=== PATIENT | male | born 1990 | race African-American/Black ===

== ENCOUNTER 2017-01-23 18:38 | Emergency (ER) | payer OTHER ==
[~2017-01-23] VITALS: Ht 188 cm; Wt 65.0 kg
[~2017-01-23 18:38] MED LIST: DILA2TAB2 PO; FOLI1 PO; HYDR500 PO; PERC5TAB12 PO; PERI8.6T PO
[2017-01-23 18:40] VITALS: BP 130/74; PULSE 86; RESP 15; TEMP 99.1; O2SAT 98
--- NOTE | 2017-01-23 18:47 | PD ---
Physical Exam Time Seen by Provider: 18:46 Narrative 26 y/o male here for evaluation of L leg pain which he attributes to sickle cell. He also has a wound to the medial L ankle for one week. Vital signs reviewed. Seen at triage desk. Awaiting bed placement. Data Data Last Documented VS Vital Signs Date Time Temp Pulse Resp B/P Pulse Ox O2 Delivery O2 Flow Rate FiO2 01/23/17 18:40 99.1 86 15 130/74 98 MDM Medical Record Reviewed: Yes Supervised Visit with MAK: No Jacoby Palumbo Jan 23, 2017 18:47
[2017-01-23] MEDS ORDERED: SODIUM CHLOR 0.9% 1000 ML INJ 1,000 ML IV ONE (20:43)
[2017-01-23] MEDS ORDERED: FOLI800T PO (20:45)
[2017-01-23] MEDS ORDERED: OXYC-259 PO (20:45)
[2017-01-23] MEDS ORDERED: DILA4TAB2 PO (20:45)
[2017-01-23 21:00] VITALS: BP 142/72; PULSE 90; RESP 14; O2SAT 97
[2017-01-23] MEDS ORDERED: diphenhydrAMINE HCL 50 MG/ML VIAL IV PUSH ONE (21:00)
[2017-01-23] MEDS ORDERED: ONDANSETRON HCL 4 MG/2 ML VIAL IV PUSH ONE (21:00)
[2017-01-23] MEDS ORDERED: HYDROmorphone HCL PF 1 MG/ML VIAL IV PUSH ONE ×2 (21:00→22:30)
--- NOTE | 2017-01-23 21:48 | PD ---
HPI Chief Complaint: Sickle Cell Time Seen by Provider: 21:44 Travel History International Travel<30 days: No Contact w/Intl Traveler<30days: No Traveled to known affect area: No History of Present Illness HPI 26-year-old male that presents to the ED for evaluation of sickle-cell pain on his left leg. 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 Patient follows with a pr specialist in [place]. Per patient for the past couple of days his been developing severe pain in his left leg that he attributes to the sickle cell of his had this before. Per patient he is also developing this wound on his medial aspect of his left leg that is nontraumatic. Per patient she's never had that before but he's had other lesions in other areas. Per patient his concern he might be infected. He does have some purulence coming out of the wound. He has used oxycodone, penicillin, vancomycin, clindamycin. He states compliance with pain medication prescribed to him by his doctor and states that this is not helping. Per patient the pain is 8 out of 10. Able to ambulate however. He denies any discoloration other than the wound. PFSH Past Medical History Anemia: Yes Heart Rhythm Problems: No Cancer: No Cardiovascular Problems: Yes High Cholesterol: No Chest Pain: No Congestive Heart Failure: No Diabetes: No Diminished Hearing: No Endocrine: No Genitourinary: No Hypertension: Yes Immune Disorder: No Musculoskeletal: No Neurologic: No Psychiatric: No Reproductive: No Respiratory: Yes Pneumonia: Yes Sickle Cell Disease: Yes Thyroid Disease: No Tetanus Vaccination: < 5 Years Past Surgical History Surgical History: No Previous Surgery Other Surgery: No Social History Alcohol Use: No Tobacco Use: No Substance Use: No Allergies-Medications (Allergen,Severity, Reaction): Coded Allergies: Penicillin (Verified Allergy, Intermediate, Swelling, 01/23/17) Clindamycin (Verified Allergy, Unknown, 01/23/17) Oxycodone (Verified Allergy, Unknown, 01/23/17) Vancomycin (Verified Allergy, Unknown, 01/23/17) Reported Meds & Prescriptions Reported Meds & Active Scripts Active Reported Folic Acid 800 Mcg Tab 800 Mcg PO DAILY Oxycontin (Oxycodone HCl) 10 Mg Tab 10 Mg PO Q12HR Dilaudid (Hydromorphone HCl) 4 Mg Tab 4 Mg PO Q6H PRN Review of Systems Except as stated in HPI: all other systems reviewed are Neg Physical Exam Narrative GENERAL: SKIN: Warm and dry. HEAD: Atraumatic. Normocephalic. EYES: Pupils equal and round. No scleral icterus. No injection or drainage. ENT: No nasal bleeding or discharge. Mucous membranes pink and moist. Tongue is midline. No uvula deviation. NECK: Trachea midline. No JVD. CARDIOVASCULAR: Regular rate and rhythm. No murmurs, S3, S4. RESPIRATORY: No accessory muscle use. Clear to auscultation. Breath sounds equal bilaterally. GASTROINTESTINAL: Abdomen soft, non-tender, nondistended. Hepatic and splenic margins not palpable. MUSCULOSKELETAL: Extremities without clubbing, cyanosis, or edema. No obvious deformities. Full range of motion of the upper and lower extremities bilaterally. 2+ pulses bilaterally. Patient does have what appears to be a very small ulcer-like lesion on the medial aspect of the left leg about less than 170 m in diameter. Some yellow pus coming out of it. Patient does have 2 + pulses in the left foot. Less than 1 mm deep. NEUROLOGICAL: Awake and alert. No obvious cranial nerve deficits. Motor grossly within normal limits. Five out of 5 muscle strength in the arms and legs. Normal speech. PSYCHIATRIC: Appropriate mood and affect; insight and judgment normal. Data Data Last Documented VS Vital Signs Date Time Temp Pulse Resp B/P Pulse Ox O2 Delivery O2 Flow Rate FiO2 01/23/17 20:46 Room Air 01/23/17 18:40 99.1 86 15 130/74 98 Orders Complete Blood Count With Diff (01/23/17 20:43) Comprehensive Metabolic Panel (01/23/17 20:43) Retic Count (01/23/17 20:43) Ecg Monitoring (01/23/17 20:43) Iv Access Insert/Monitor (01/23/17 20:43) Oximetry (01/23/17 20:43) Sodium Chlor 0.9% 1000 Ml Inj (Ns 1000 M (01/23/17 20:43) Wound Culture And Gram Stain (01/23/17 20:57) Hydromorphone Pf Inj (Dilaudid Pf Inj) (01/23/17 21:00) Diphenhydramine Inj (Benadryl Inj) (01/23/17 21:00) Ondansetron Inj (Zofran Inj) (01/23/17 21:00) Tibia/Fibula (Ap/Lat) (01/23/17 ) Sulfamet-Trimeth Ds 800-160 Mg (Bactrim (01/23/17 22:00) Hydromorphone Pf Inj (Dilaudid Pf Inj) (01/23/17 22:30) Labs Laboratory Tests Test 01/23/17 20:51 White Blood Count 9.5 TH/MM3 Red Blood Count 3.00 MIL/MM3 Hemoglobin 8.9 GM/DL Hematocrit 25.4 % Mean Corpuscular Volume 84.7 FL Mean Corpuscular Hemoglobin 29.6 PG Mean Corpuscular Hemoglobin 34.9 % Concent Red Cell Distribution Width 20.1 % Platelet Count 368 TH/MM3 Mean Platelet Volume 9.9 FL Neutrophils (%) (Auto) 53.0 % Lymphocytes (%) (Auto) 35.5 % Monocytes (%) (Auto) 9.2 % Eosinophils (%) (Auto) 1.4 % Basophils (%) (Auto) 0.9 % Neutrophils # (Auto) 5.0 TH/MM3 Lymphocytes # (Auto) 3.4 TH/MM3 Monocytes # (Auto) 0.9 TH/MM3 Eosinophils # (Auto) 0.1 TH/MM3 Basophils # (Auto) 0.1 TH/MM3 CBC Comment AUTO DIFF Reticulocyte Count 6.4 % Absolute Reticulocyte Count 190.8 MIL/L Sodium Level 139 MEQ/L Potassium Level 4.4 MEQ/L Chloride Level 107 MEQ/L Carbon Dioxide Level 24.7 MEQ/L Anion Gap 7 MEQ/L Blood Urea Nitrogen 7 MG/DL Creatinine 0.74 MG/DL Estimat Glomerular Filtration 157 ML/MIN Rate Random Glucose 100 MG/DL Calcium Level 9.2 MG/DL Total Bilirubin 3.8 MG/DL Aspartate Amino Transf 111 U/L (AST/SGOT) Alanine Aminotransferase 33 U/L (ALT/SGPT) Alkaline Phosphatase 110 U/L Total Protein 9.5 GM/DL Albumin 4.3 GM/DL MDM Medical Decision Making Medical Screen Exam Complete: Yes Emergency Medical Condition: Yes Medical Record Reviewed: Yes Interpretation(s) xray negative CBC & BMP Diagram 01/23/17 20:51 Differential Diagnosis Ulcer versus acute sickle cell crisis versus sickle cell pain versus acute on chronic pain versus fracture versus cellulitis Narrative Course 26-year-old male that presents to the ED for evaluation of sickle-cell pain and lesion to the left leg. Patient was properly examined and was found to have signs and symptoms which appear to be consistent with an infected lesion as well as sickle cell pain. IV was started, labs were ordered. IV pain medication was started. Patient was started on Bactrim. X-ray ordered. Labs and imaging pending. Case will be signed out to my attending. Segundo Esqueda Jan 23, 2017 21:47
--- NOTE | 2017-01-23 21:52 | RADRPT ---
EXAM DATE/TIME: 01/23/2017 21:22 [facility] COMPARISON: No previous studies available for comparison. INDICATIONS : Left lower leg wound, infection. MEDICAL HISTORY : Sickle Cell disease. SURGICAL HISTORY : None. ENCOUNTER: Initial ACUITY: 1 day PAIN SCORE: 5/10 LOCATION: Left distal lower leg FINDINGS: Two view examination of the left tibia demonstrates no evidence of fracture or dislocation. Bony min eralization is normal. The soft tissue structures are intact. There is mild film artifact on one of the lateral views. CONCLUSION: Negative exam with no underlying bony abnormality. Artem Cardenas MD on January 23, 2017 at 21:49 Board Certified Radiologist. This report was verified electronically.
[2017-01-23] MEDS ORDERED: SULFAMETHOXAZOLE-TRIMETHOPRIM DS 800-160 MG TAB PO ONE (22:00)
[2017-01-23 22:04] LABS: BASOPHIL # 0.1 TH/MM3 (0-0.2); BASOPHIL % 0.9 % (0.0-2.0); EOSINOPHIL # 0.1 TH/MM3 (0-0.4); EOSINOPHIL % 1.4 % (0.0-4.0); HEMATOCRIT 25.4 % (39.0-51.0); LYMPH % 35.5 % (9.0-44.0); LYMPHOCYTE # 3.4 TH/MM3 (1.0-4.8); MEAN CELL VOLUME 84.7 FL (80.0-100.0); MEAN CORPUSCULAR HEMOGLOBIN 29.6 PG (27.0-34.0); MEAN CORPUSCULAR HGB CONC 34.9 % (32.0-36.0); MONO % 9.2 % (0.0-8.0); PLATELET COUNT 368 TH/MM3 (150-450); RED CELL DISTRIBUTION WIDTH 20.1 % (11.6-17.2); RETIC % 6.4 % (0.4-3.0); WHITE BLOOD COUNT 9.5 TH/MM3 (4.0-11.0)
[2017-01-23 22:07] LABS: ALT (GPT) 33 U/L (12-78); HEMO FLAGS AUTO DIFF; REVIEW FLAG AUTO DIFF
[2017-01-23 22:09] LABS: ALKALINE PHOSPHATASE 110 U/L (45-117); TOTAL BILIRUBIN ADULT 3.8 MG/DL (0.2-1.0)
[2017-01-23 22:10] VITALS: BP 122/74; PULSE 84; RESP 12; O2SAT 100
[2017-01-23 22:12] LABS: ANION GAP 7 MEQ/L (5-15); AST (GOT) 111 U/L (15-37); BICARBONATE 24.7 MEQ/L (21.0-32.0); BLOOD UREA NITROGEN 7 MG/DL (7-18); CHLORIDE 107 MEQ/L (98-107); GLOMERULAR FILTRATION RATE 157 ML/MIN (>89); SODIUM (NA) 139 MEQ/L (136-145)
[2017-01-23 22:13] LABS: POTASSIUM 4.4 MEQ/L (3.5-5.1)
[2017-01-23] MEDS ORDERED: BACT800T5 PO (22:51)
[2017-01-23 22:52] LABS: BANDS 2 % (0-6); BASOPHILS 4 % (0-2); CORRECTED NUCLEATED RBC 8 /100 WBC (0-0); EOSINOPHILS 1 % (0-4); NEUTROPHIL # MANUAL DIFF 5.5 TH/MM3 (1.8-7.7); POLYS (SEG NEUTROPHILS) 56 % (16-70); WBC DIFF SAMPLE 100
--- NOTE | 2017-01-23 22:52 | PD ---
Physical Exam Date Seen by Provider: Jan 23, 2017 Time Seen by Provider: 22:51 Narrative GENERAL: Well-developed well-nourished male in no acute distress no respiratory distress SKIN: Warm and dry. Left ankle medial aspect just proximal to the medial malleolus area of flat ulceration without spontaneous drainage 1.5 cm x 1 cm mild tenderness to palpation no induration nonfluctuant. HEAD: Normocephalic. EYES: No scleral icterus. No injection or drainage. NECK: Supple, trachea midline. No JVD or lymphadenopathy. CARDIOVASCULAR: Regular rate and rhythm without murmurs, gallops, or rubs. RESPIRATORY: Breath sounds equal bilaterally. No accessory muscle use. GASTROINTESTINAL: Abdomen soft, non-tender, nondistended. MUSCULOSKELETAL: No cyanosis, or edema. BACK: Nontender without obvious deformity. No CVA tenderness. Accepted in transfer of care from Carolann Esqueda PA-C Data Data Last Documented VS Vital Signs Date Time Temp Pulse Resp B/P Pulse Ox O2 Delivery O2 Flow Rate FiO2 01/23/17 20:46 Room Air 01/23/17 18:40 99.1 86 15 130/74 98 Orders Complete Blood Count With Diff (01/23/17 20:43) Comprehensive Metabolic Panel (01/23/17 20:43) Retic Count (01/23/17 20:43) Ecg Monitoring (01/23/17 20:43) Iv Access Insert/Monitor (01/23/17 20:43) Oximetry (01/23/17 20:43) Sodium Chlor 0.9% 1000 Ml Inj (Ns 1000 M (01/23/17 20:43) Wound Culture And Gram Stain (01/23/17 20:57) Hydromorphone Pf Inj (Dilaudid Pf Inj) (01/23/17 21:00) Diphenhydramine Inj (Benadryl Inj) (01/23/17 21:00) Ondansetron Inj (Zofran Inj) (01/23/17 21:00) Tibia/Fibula (Ap/Lat) (01/23/17 ) Sulfamet-Trimeth Ds 800-160 Mg (Bactrim (01/23/17 22:00) Hydromorphone Pf Inj (Dilaudid Pf Inj) (01/23/17 22:30) Ketorolac Inj (Toradol Inj) (01/23/17 23:15) Sodium Chlorid 0.9% 500 Ml Inj (Ns 500 M (01/23/17 23:15) Labs Laboratory Tests Test 01/23/17 20:51 White Blood Count 9.5 TH/MM3 Red Blood Count 3.00 MIL/MM3 Hemoglobin 8.9 GM/DL Hematocrit 25.4 % Mean Corpuscular Volume 84.7 FL Mean Corpuscular Hemoglobin 29.6 PG Mean Corpuscular Hemoglobin 34.9 % Concent Red Cell Distribution Width 20.1 % Platelet Count 368 TH/MM3 Mean Platelet Volume 9.9 FL Neutrophils (%) (Auto) 53.0 % Lymphocytes (%) (Auto) 35.5 % Monocytes (%) (Auto) 9.2 % Eosinophils (%) (Auto) 1.4 % Basophils (%) (Auto) 0.9 % Neutrophils # (Auto) 5.0 TH/MM3 Lymphocytes # (Auto) 3.4 TH/MM3 Monocytes # (Auto) 0.9 TH/MM3 Eosinophils # (Auto) 0.1 TH/MM3 Basophils # (Auto) 0.1 TH/MM3 CBC Comment AUTO DIFF Differential Total Cells 100 Counted Neutrophils % (Manual) 56 % Band Neutrophils % 2 % Lymphocytes % 31 % Monocytes % 6 % Eosinophils % 1 % Basophils % 4 % Neutrophils # (Manual) 5.5 TH/MM3 Nucleated Red Blood Cells 8 /100 WBC Differential Comment FINAL DIFF MANUAL Platelet Estimate NORMAL Platelet Morphology Comment ENLARGED Sickle Cells 2+ Tear Drop Cells 1+ Keratocytes OCC Reticulocyte Count 6.4 % Absolute Reticulocyte Count 190.8 MIL/L Sodium Level 139 MEQ/L Potassium Level 4.4 MEQ/L Chloride Level 107 MEQ/L Carbon Dioxide Level 24.7 MEQ/L Anion Gap 7 MEQ/L Blood Urea Nitrogen 7 MG/DL Creatinine 0.74 MG/DL Estimat Glomerular Filtration 157 ML/MIN Rate Random Glucose 100 MG/DL Calcium Level 9.2 MG/DL Total Bilirubin 3.8 MG/DL Aspartate Amino Transf 111 U/L (AST/SGOT) Alanine Aminotransferase 33 U/L (ALT/SGPT) Alkaline Phosphatase 110 U/L Total Protein 9.5 GM/DL Albumin 4.3 GM/DL [facility] Medical Record Reviewed: Yes Supervised Visit with MAK: Yes Interpretation(s) Last Impressions Tibia/Fibula X-Ray 01/23/17 0000 Signed Impressions: Service Date/Time: Monday, January 23, 2017 21:22 - CONCLUSION: Negative exam with no underlying bony abnormality. Artem Cardenas MD CBC & BMP Diagram 01/23/17 20:51 Vital Signs Date Time Temp Pulse Resp B/P Pulse Ox O2 Delivery O2 Flow Rate FiO2 01/23/17 20:46 Room Air 01/23/17 18:40 99.1 86 15 130/74 98 Differential Diagnosis Vaso-occlusive crisis, exacerbation sickle cell, anemia, cellulitis, osteomyelitis Narrative Course Accepted in transfer of care from Carolann Esqueda PA-C Patient given dose of Toradol 30 mg IV and additional IV fluids 500 mL bolus of normal saline Patient reports feeling clinically improved and stable for outpatient management And 12 AM patient is sitting comfortably on stretcher taxing on his cell phone reports he feels improved and desires of being discharged to home; patient is aware of the importance of continuing his current medications as chronically prescribed as well as completing course of antibiotic. Patient is encouraged to return to the emergency department for fever or any concerns. Diagnosis Primary Impression: Sickle cell anemia Qualified Code: D57.00 - Hb-SS disease with crisis Additional Impression: Cutaneous ulcer Qualified Code: L98.491 - Cutaneous ulcer, limited to breakdown of skin Referrals: Primary Care Physician 2 days Patient Instructions: General Instructions, Narcotic given in the ED Additional Instruction: Increase fluid hydration Follow-up with primary care provider Return to the emergency department for any concerns or change in condition or for fever Complete course of antibiotic as prescribed Monitor temperature every 4 hours with thermometer take acetaminophen/Tylenol as needed for fever 100.4F or greater Keep wound site clean and dry May apply topical antibiotic ointment such as over -the-counter Neosporin or Polysporin. Med/Other Pt SpecificInfo: Prescription(s) given Scripts Sulfamethoxazole-Trimethoprim (Bactrim DS)800-160 Mg Tab1 Tab PO BID 10 Days Prov:Marielos Kidd MD 01/23/17 Disposition: 01 DISCHARGE HOME Condition: Stable Marielos Kidd MD Jan 23, 2017 22:52
[2017-01-23 22:53] LABS: SICKLE CELLS 2+ (NORMAL); TEARDROP RBCS 1+ (NORMAL)
[2017-01-23 22:54] LABS: KERATOCYTES OCC (NORMAL); PLATELET ESTIMATE SMEAR NORMAL (NORMAL); PLATELET MORPHOLOGY ENLARGED (NORMAL); SCAN/DIFF FINAL DIFF MANUAL
[2017-01-23] MEDS ORDERED: SODIUM CHLORID 0.9% 500 ML INJ 500 ML IV ONE (23:15)
[2017-01-23] MEDS ORDERED: KETOROLAC TROMETHAMINE 30 MG/ML (IVP) VIAL IV PUSH ONE (23:15)
[2017-01-23 23:20] VITALS: BP 134/68; PULSE 88; RESP 12; O2SAT 99
[2017-01-24] MEDS ORDERED: HYDROmorphone HCL 4 MG TAB PO ONE (00:30)
[2017-01-24 00:43] VITALS: BP 128/66; PULSE 82; RESP 14; O2SAT 99
== END 2017-01-24 01:02 | disposition home or self-care (01) ==
LOC: NEPC 18:38
DX: D57.1 Sickle-cell disease without crisis (principal); L98.491 Non-pressure chronic ulcer of skin of other sites limited to breakdown of skin; D64.9 Anemia, unspecified; I10 Essential (primary) hypertension; Z79.899 Other long term (current) drug therapy; Z88.0 Allergy status to penicillin; Z88.5 Allergy status to narcotic agent; Z88.8 Allergy status to other drugs, medicaments and biological substances
CPT/HCPCS: 73590; 80053; 85007; 85027; 85044; 86403; 87070; 96361; 96374; 96375; 96376; 99284; J1170; J1200; J1885; J2405; J7030; J7040; 87205